=== PATIENT | male | born 1995 | race Hispanic/Latino ===

== ENCOUNTER 2016-12-16 08:17 | Emergency (ER) | payer SELFPAY ==
[~2016-12-16] VITALS: Ht 177.8 cm; Wt 140.0 kg
[~2016-12-16 08:17] MED LIST: ALBUTEROL S2.5 MG/.5 IN; AMOXICILLIN500 MG PO; CEPHALEXIN500 MG PO; IBUPROFEN600 MG OR; MEDDOSEPAK PO; MEDROL4 M1 PO; PROAIR HFA IN; ROBITUSSIN AC10 ML PO; STERAPRED DS10 MG PO; VENTOLIN HFA IN; ZITHROMAX500 MG OR; ZOFRAN4 MG/TAB PO; ZPAK PO; [UNRECOGNIZED DRUG - REMARK] IN
[2016-12-16] MEDS ORDERED: CLINDAMYCIN300 M1 PO (08:40)
[2016-12-16] MEDS ORDERED: NAPROSYN500 MG PO (08:40)
[2016-12-16 08:43] VITALS: BP 141/78
== END 2016-12-16 08:50 | disposition home or self-care (01) | DRG 603 ==
LOC: ED 08:17
DX: L03.032 Cellulitis of left toe (principal); J45.909 Unspecified asthma, uncomplicated

== ENCOUNTER 2017-11-07 01:13 | Emergency (ER) | payer SELFPAY ==
[~2017-11-07] VITALS: Ht 177.8 cm; Wt 145.0 kg
[~2017-11-07 01:13] MED LIST changes: +CLINDAMYCIN300 M1 PO; +NAPROSYN500 MG PO
[2017-11-07 01:50] LABS: HEMATOCRIT 42.7 % (39.0-50.0); HEMOGLOBIN 15.1 g/dl (14.0-18.0); IMMATURE GRANULOCYTES 0.4 % (0.0-5.0); MEAN CORPUSCULAR HGB 28.3 pG CALC (26.0-32.0); MEAN CORPUSCULAR HGB CONC 35.4 g/L CALC (32.0-36.0); NEUT# 9.11 thou/uL (1.82-7.42); RED BLOOD COUNT 5.34 mill/uL (4.70-6.10); RED CELL DISTRI WIDTH 12.3 % (11.5-15.5); URINE BILIRUBIN - DIPSTICK NEGATIVE (NEGATIVE); URINE BLOOD DIPSTICK NEGATIVE (NEGATIVE); URINE COLOR YELLOW; URINE GLUCOSE - DIPSTICK NEGATIVE (NEGATIVE); URINE KETONE TRACE mg/dL (NEGATIVE); URINE LEUK ESTERASE NEGATIVE (NEGATIVE); URINE NITRITE - DIPSTICK NEGATIVE (Negative); URINE PROTEIN - DIPSTICK 30 mg/dL (NEG-TRACE); URINE SPECIFIC GRAVITY 1.025; URINE UROBILINOGEN - DIPSTICK 0.2 E.U./dL (0.2)
[2017-11-07 01:52] LABS: URINE CLARITY CLEAR
[2017-11-07 01:54] LABS: BARBITURATES NEGATIVE (NEGATIVE); COCAINE NEGATIVE (NEGATIVE); METHADONE NEGATIVE (NEGATIVE); OXCYCODONE NEGATIVE (NEGATIVE); TETRAHYDROCANNABIONOL NEGATIVE (NEGATIVE); TRICYLIC ANTIDEPRESSANTS NEGATIVE (NEGATIVE)
[2017-11-07 01:56] LABS: URINE BACTERIA FEW hpf; URINE HYALINE CAST FEW lpf (NONE-RARE); URINE RBC 0-2 RBC/hpf (0-5); URINE SQUAMOUS EPITHELIAL CELL FEW EPI/hpf (0-FEW)
[2017-11-07 02:05] LABS: ALBUMIN 4.3 g/dL (3.2-5.0); ANION GAP 16 (6-22 (CALC)); BILIRUBIN, TOTAL 1.7 mg/dL (0.0-1.4); BUN 14 mg/dL (9-20); BUN/CREATININE RATIO 19 (12-20 (CALC)); CARBON DIOXIDE 23 mmol/l (22-30); CHLORIDE 109 mmol/l (95-108); CREATININE 0.8 mg/dL (0.7-1.3); GFR > 60 ML/MIN (>=60 (CALC)); GFR FOR AFR.AMER. > 60 ML/MIN (>=60 (CALC)); SGPT/ALT 47 u/l (21-72); SODIUM 144 mmol/l (137-146); TOTAL PROTEIN 8.2 g/dL (6.3-8.2)
[2017-11-07 02:12] LABS: ALKALINE PHOSPHATASE 105 u/l (38-126); SGOT/AST 39 u/l (17-59)
[2017-11-07] MEDS ORDERED: XANAX0.25 MG PO (02:18)
[2017-11-07] MEDS ORDERED: CEPHALEXIN500 M1 PO (02:19)
[2017-11-07 02:55] VITALS: BP 138/63
== END 2017-11-07 02:55 | disposition home or self-care (01) | DRG 880 ==
LOC: ED 01:13
PROVIDERS: Emergency Medicine
DX: F41.9 Anxiety disorder, unspecified (principal); F43.9 Reaction to severe stress, unspecified; N39.0 Urinary tract infection, site not specified; J45.909 Unspecified asthma, uncomplicated

== ENCOUNTER 2017-11-20 19:24 | Emergency (ER) | payer SELFPAY ==
[~2017-11-20] VITALS: Ht 177.8 cm; Wt 148.6 kg
[~2017-11-20 19:24] MED LIST changes: +CEPHALEXIN500 M1 PO; +XANAX0.25 MG PO
[2017-11-20 20:09] LABS: HEMATOCRIT 48.1 % (39.0-50.0); HEMOGLOBIN 16.3 g/dl (14.0-18.0); IMMATURE GRANULOCYTES 0.6 % (0.0-5.0); MEAN CELL VOLUME 82.2 fL CALC (80.0-100.0); MEAN CORPUSCULAR HGB 27.9 pG CALC (26.0-32.0); MEAN CORPUSCULAR HGB CONC 33.9 g/L CALC (32.0-36.0); NEUT# 12.51 thou/uL (1.82-7.42); RED BLOOD COUNT 5.85 mill/uL (4.70-6.10); RED CELL DISTRI WIDTH 12.3 % (11.5-15.5)
[2017-11-20 20:14] LABS: URINE BILIRUBIN - DIPSTICK NEGATIVE (NEGATIVE); URINE BLOOD DIPSTICK NEGATIVE (NEGATIVE); URINE COLOR YELLOW; URINE GLUCOSE - DIPSTICK NEGATIVE (NEGATIVE); URINE KETONE NEGATIVE (NEGATIVE); URINE LEUK ESTERASE NEGATIVE (NEGATIVE); URINE NITRITE - DIPSTICK NEGATIVE (Negative); URINE PROTEIN - DIPSTICK TRACE mg/dL (NEG-TRACE); URINE SPECIFIC GRAVITY >=1.030; URINE UROBILINOGEN - DIPSTICK 0.2 E.U./dL (0.2)
[2017-11-20 20:18] LABS: URINE CLARITY CLEAR
[2017-11-20] MEDS ORDERED: PROVENTIL0.083 % IN (20:18)
[2017-11-20 20:22] LABS: ALBUMIN 4.4 g/dL (3.2-5.0); ALKALINE PHOSPHATASE 115 u/l (38-126); ANION GAP 17 (6-22 (CALC)); BILIRUBIN, TOTAL 2.8 mg/dL (0.0-1.4); BUN 12 mg/dL (9-20); BUN/CREATININE RATIO 13 (12-20 (CALC)); CARBON DIOXIDE 25 mmol/l (22-30); CHLORIDE 103 mmol/l (95-108); GFR > 60 ML/MIN (>=60 (CALC)); GFR FOR AFR.AMER. > 60 ML/MIN (>=60 (CALC)); POTASSIUM 3.7 mmol/l (3.5-5.1); SGOT/AST 49 u/l (17-59); SODIUM 141 mmol/l (137-146); TOTAL PROTEIN 8.2 g/dL (6.3-8.2)
[2017-11-20 20:30] LABS: INFLUENZA A NONE DETECTED (NONE DETECT)
[2017-11-20 20:31] LABS: INFLUENZA B NONE DETECTED (NONE DETECT)
[2017-11-20] MEDS ORDERED: CIPROFLOXACN500 MG PO (20:37)
[2017-11-20 21:04] VITALS: BP 140/82
== END 2017-11-20 21:19 | disposition home or self-care (01) | DRG 373 ==
LOC: ED 19:24
PROVIDERS: Family Medicine
DX: A04.9 Bacterial intestinal infection, unspecified (principal); J45.909 Unspecified asthma, uncomplicated

== ENCOUNTER 2020-02-20 06:25 | Emergency (ER) | payer OTHER ==
[~2020-02-20] VITALS: Ht 182.9 cm; Wt 155.0 kg
[~2020-02-20 06:25] MED LIST changes: +CIPROFLOXACN500 MG PO; +PROVENTIL0.083 % IN
[2020-02-20] MEDS ORDERED: AMOXICILLIN875 MG PO (08:20)
[2020-02-20 08:30] VITALS: BP 146/82
== END 2020-02-20 08:30 | disposition home or self-care (01) | DRG 203 ==
LOC: ED 06:25
DX: J45.901 Unspecified asthma with (acute) exacerbation (principal); H66.92 Otitis media, unspecified, left ear; Z20.822 Contact with and (suspected) exposure to COVID-19

== ENCOUNTER 2020-04-27 00:33 | Emergency (ER) | payer OTHER ==
[~2020-04-27] VITALS: Ht 185.4 cm; Wt 164.0 kg
[~2020-04-27 00:33] MED LIST changes: +AMOXICILLIN875 MG PO
[2020-04-27 00:43] VITALS: BP 174/84
[2020-04-27] MEDS ORDERED: BP MED PO (00:51)
[2020-04-27] MEDS ORDERED: CORTISPORIN OTI10 M2 AS (00:52)
== END 2020-04-27 01:00 | disposition home or self-care (01) | DRG 156 ==
LOC: ED 00:33
DX: H60.92 Unspecified otitis externa, left ear (principal); I10 Essential (primary) hypertension; J45.909 Unspecified asthma, uncomplicated

== ENCOUNTER 2020-05-27 22:57 | Emergency (ER) | payer OTHER ==
[~2020-05-27 22:57] MED LIST changes: +BP MED PO; +CORTISPORIN OTI10 M2 AS
[2020-05-28 00:06] LABS: HEMATOCRIT 39.5 % (39.0-50.0); HEMOGLOBIN 13.4 g/dl (14.0-18.0); IMMATURE GRANULOCYTES 0.4 % (0.0-5.0); MEAN CORPUSCULAR HGB 27.8 pG CALC (26.0-32.0); MEAN CORPUSCULAR HGB CONC 33.9 g/dL CAL (32.0-36.0); NEUT# 8.44 thou/uL (1.82-7.42); RED BLOOD COUNT 4.82 mill/uL (4.70-6.10); RED CELL DISTRI WIDTH 12.4 % (11.5-15.5)
[2020-05-28 00:20] LABS: ALBUMIN 4.4 g/dL (3.2-5.0); ALKALINE PHOSPHATASE 99 u/l (38-126); ANION GAP 12 (6-22 (CALC)); BILIRUBIN, TOTAL 0.9 mg/dL (0.0-1.4); BUN 10 mg/dL (9-20); BUN/CREATININE RATIO 13 (12-20 (CALC)); CARBON DIOXIDE 27 mmol/l (22-30); CHLORIDE 101 mmol/l (95-108); CREATININE 0.8 mg/dL (0.7-1.3); GFR > 60 ML/MIN (>=60 (CALC)); GFR FOR AFR.AMER. > 60 ML/MIN (>=60 (CALC)); SGOT/AST 38 u/l (17-59); SODIUM 137 mmol/l (137-146); TOTAL PROTEIN 8.2 g/dL (6.3-8.2)
[2020-05-28] MEDS ORDERED: ZPAK PO (00:27)
[2020-05-28] MEDS ORDERED: CODEINE/GUAIFEN1 SOL PO (02:30)
[2020-05-28 02:52] VITALS: BP 151/77
== END 2020-05-28 02:53 | disposition home or self-care (01) | DRG 203 ==
LOC: ED 22:57
PROVIDERS: Emergency Medicine
DX: J45.909 Unspecified asthma, uncomplicated (principal); I10 Essential (primary) hypertension; Z20.822 Contact with and (suspected) exposure to COVID-19
CPT/HCPCS: Q9967

== ENCOUNTER 2020-10-03 07:24 | Emergency (ER) | payer MEDICAID ==
[~2020-10-03] VITALS: Ht 185.4 cm; Wt 158.0 kg
[~2020-10-03 07:24] MED LIST changes: +CODEINE/GUAIFEN1 SOL PO
[2020-10-03 07:44] VITALS: BP 146/76
[2020-10-03] MEDS ORDERED: ZPAK PO (08:36)
[2020-10-03] MEDS ORDERED: DECADRON2 MG PO (08:36)
== END 2020-10-03 08:53 | disposition home or self-care (01) ==
LOC: ED 07:24
DX: U07.1 COVID-19 (principal); J45.909 Unspecified asthma, uncomplicated; I10 Essential (primary) hypertension

== ENCOUNTER 2020-12-22 20:19 | Emergency (ER) | payer MEDICAID ==
[~2020-12-22] VITALS: Ht 185.4 cm; Wt 159.0 kg
[~2020-12-22 20:19] MED LIST changes: +DECADRON2 MG PO
[2020-12-22] MEDS ORDERED: NORVASC5 M1 PO (21:20)
[2020-12-22] MEDS ORDERED: MICARDIS20 MG PO (21:20)
[2020-12-22] MEDS ORDERED: NYQUI2 PO (21:21)
[2020-12-22] MEDS ORDERED: ZPAK PO (21:21)
[2020-12-22] MEDS ORDERED: SIMVASTATIN5 MG PO (21:21)
[2020-12-22 21:27] LABS: HEMATOCRIT 39.8 % (39.0-50.0); HEMOGLOBIN 13.9 g/dl (14.0-18.0); IMMATURE GRANULOCYTES 0.8 % (0.0-5.0); MEAN CELL VOLUME 81.4 fL CALC (80.0-100.0); MEAN CORPUSCULAR HGB 28.4 pG CALC (26.0-32.0); MEAN CORPUSCULAR HGB CONC 34.9 g/dL CAL (32.0-36.0); NEUT# 9.06 thou/uL (1.82-7.42); RED BLOOD COUNT 4.89 mill/uL (4.70-6.10); RED CELL DISTRI WIDTH 12.4 % (11.5-15.5)
[2020-12-22 21:40] LABS: ALKALINE PHOSPHATASE 80 u/l (38-126); ANION GAP 14 (6-22 (CALC)); BILIRUBIN, TOTAL 1.5 mg/dL (0.0-1.4); BUN 12 mg/dL (9-20); BUN/CREATININE RATIO 14 (12-20 (CALC)); CARBON DIOXIDE 22 mmol/l (22-30); CHLORIDE 104 mmol/l (95-108); CREATININE 0.8 mg/dL (0.7-1.3); GFR > 60 ML/MIN (>=60 (CALC)); GFR FOR AFR.AMER. > 60 ML/MIN (>=60 (CALC)); POTASSIUM 3.5 mmol/l (3.5-5.1); SGOT/AST 31 u/l (17-59); SODIUM 136 mmol/l (137-146); TOTAL PROTEIN 7.3 g/dL (6.3-8.2)
[2020-12-22] MEDS ORDERED: TAM75CAP PO (22:22)
[2020-12-22 23:18] VITALS: BP 129/58
== END 2020-12-22 23:12 | disposition home or self-care (01) ==
LOC: ED 20:19
PROVIDERS: Emergency Medicine
DX: J11.1 Influenza due to unidentified influenza virus with other respiratory manifestations (principal); I10 Essential (primary) hypertension; J45.909 Unspecified asthma, uncomplicated; E78.00 Pure hypercholesterolemia, unspecified; Z20.822 Contact with and (suspected) exposure to COVID-19

== ENCOUNTER 2021-03-28 18:05 | Emergency (ER) | payer MEDICAID ==
[~2021-03-28] VITALS: Ht 185.4 cm; Wt 159.0 kg
[2021-03-28] VITALS (8 sets, daily range): BP systolic 126–144; BP diastolic 64–80
[~2021-03-28 18:05] MED LIST changes: +MICARDIS20 MG PO; +NORVASC5 M1 PO; +NYQUI2 PO; +SIMVASTATIN5 MG PO; +TAM75CAP PO
[2021-03-28 19:12] LABS: HEMATOCRIT 41.9 % (39.0-50.0); HEMOGLOBIN 14.1 g/dl (14.0-18.0); IMMATURE GRANULOCYTES 0.2 % (0.0-5.0); MEAN CORPUSCULAR HGB 27.6 pG CALC (26.0-32.0); MEAN CORPUSCULAR HGB CONC 33.7 g/dL CAL (32.0-36.0); NEUT# 8.7 thou/uL (1.82-7.42); RED BLOOD COUNT 5.11 mill/uL (4.70-6.10); RED CELL DISTRI WIDTH 12.4 % (11.5-15.5)
[2021-03-28 19:34] LABS: ACT PARTIAL THROMBO TIME 29.7 SECONDS (20.0-32.5); ALBUMIN 4.2 g/dL (3.2-5.0); ALKALINE PHOSPHATASE 105 u/l (38-126); ANION GAP 17 (6-22 (CALC)); BUN 17 mg/dL (9-20); BUN/CREATININE RATIO 23 (12-20 (CALC)); CARBON DIOXIDE 24 mmol/l (22-30); CHLORIDE 104 mmol/l (95-108); CREATININE 0.7 mg/dL (0.7-1.3); ETHYL ALCOHOL 0 mg/dl (0-30); GFR > 60 ML/MIN (>=60 (CALC)); GFR FOR AFR.AMER. > 60 ML/MIN (>=60 (CALC)); LIPASE 41 u/l (23-300); MAGNESIUM 1.9 mg/dL (1.6-2.3); POTASSIUM 3.8 mmol/l (3.5-5.1); SGOT/AST 40 u/l (17-59); SODIUM 141 mmol/l (137-146)
[2021-03-28 19:36] LABS: BILIRUBIN, TOTAL 0.8 mg/dL (0.0-1.4)
== END 2021-03-28 22:43 | disposition home or self-care (01) ==
LOC: ED 18:05
DX: R07.89 Other chest pain (principal); I10 Essential (primary) hypertension; E78.5 Hyperlipidemia, unspecified; J45.909 Unspecified asthma, uncomplicated; F17.210 Nicotine dependence, cigarettes, uncomplicated; E66.9 Obesity, unspecified; Z82.49 Family history of ischemic heart disease and other diseases of the circulatory system; Z20.822 Contact with and (suspected) exposure to COVID-19

== ENCOUNTER 2021-04-04 13:42 | Emergency (ER) | payer MEDICAID | END 2021-04-04 15:21 | disposition left against medical advice (07) | DRG 951 | LOC: ED 13:42 → LWOBS 15:20 | DX: Z53.21 Procedure and treatment not carried out due to patient leaving prior to being seen by health care provider (principal) ==

== ENCOUNTER 2022-10-25 18:57 | Emergency (ER) | payer OTHER ==
[~2022-10-25] VITALS: Ht 180.3 cm; Wt 160.0 kg
[2022-10-25 23:11] LABS: URINE BILIRUBIN - DIPSTICK Negative (NEGATIVE); URINE BLOOD DIPSTICK Negative (NEGATIVE); URINE GLUCOSE - DIPSTICK Negative (NEGATIVE); URINE KETONE Trace mg/dL (NEGATIVE); URINE LEUK ESTERASE Negative (NEGATIVE); URINE NITRITE - DIPSTICK Negative (Negative); URINE PROTEIN - DIPSTICK Trace mg/dL (NEG-TRACE)
[2022-10-25 23:20] LABS: URINE COLOR Yellow
[2022-10-25] MEDS ORDERED: ULTRAM50 MG PO (23:30)
[2022-10-25] MEDS ORDERED: CYCLOBENZAPRINE10 MG PO (23:42)
[2022-10-26 00:15] VITALS: BP 137/60
[2022-10-26] MEDS ORDERED: CYCLOBENZAPRINE10 MG PO (02:51)
[2022-10-26] MEDS ORDERED: ULTRAM50 MG PO (02:51)
[2022-10-26] MEDS ORDERED: TELMISARTAN PO (02:56)
[2022-10-26] MEDS ORDERED: HYD PO (02:56)
== END 2022-10-26 00:15 | disposition home or self-care (01) ==
LOC: ED 18:57
PROVIDERS: Emergency Medicine
DX: S33.5XXA Sprain of ligaments of lumbar spine, initial encounter (principal); S73.102A Unspecified sprain of left hip, initial encounter; I10 Essential (primary) hypertension; J45.909 Unspecified asthma, uncomplicated; E78.00 Pure hypercholesterolemia, unspecified; X50.3XXA Overexertion from repetitive movements, initial encounter; Y93.B3 Activity, free weights

== ENCOUNTER 2023-02-18 07:47 | Emergency (ER) | payer SELFPAY ==
[~2023-02-18] VITALS: Ht 180.3 cm; Wt 157.0 kg
[~2023-02-18 07:47] MED LIST changes: +CYCLOBENZAPRINE10 MG PO; +HYD PO; +TELMISARTAN PO; +ULTRAM50 MG PO
[2023-02-18 07:56] VITALS: BP 158/92
[2023-02-18 08:00] VITALS: BP 153/87
[2023-02-18] MEDS ORDERED: MICARDIS H80 MG/25 M PO ×2 (08:08→08:13)
[2023-02-18] MEDS ORDERED: AMLODIPINE BESY10 MG PO ×2 (08:08→08:13)
[2023-02-18] MEDS ORDERED: SIMVASTATIN10 MG PO ×2 (08:09→08:13)
[2023-02-18 08:15] VITALS: BP 159/137
[2023-02-18 08:30] VITALS: BP 143/84
[2023-02-18 08:45] VITALS: BP 143/92
== END 2023-02-18 08:48 | disposition home or self-care (01) | DRG 305 ==
LOC: ED 07:47
DX: I10 Essential (primary) hypertension (principal)

== ENCOUNTER 2023-08-09 11:59 | Emergency (ER) | payer SELFPAY ==
[~2023-08-09] VITALS: Ht 180.3 cm; Wt 142.8 kg
[2023-08-09] VITALS (7 sets, daily range): BP systolic 117–152; BP diastolic 72–96
[~2023-08-09 11:59] MED LIST changes: +AMLODIPINE BESY10 MG PO; +MICARDIS H80 MG/25 M PO; +SIMVASTATIN10 MG PO; +VOLTAREN - GENE75 MG PO
[2023-08-09] MEDS ORDERED: ORPHENADRINE CITRATE 30 MG/ML AMP IV ONE (12:30)
[2023-08-09] MEDS ORDERED: KETOROLAC TROMETHAMINE 30 MG/ML SDV IM ONE (12:30)
[2023-08-09] MEDS ORDERED: predniSONE 20 MG/TAB PO ONE (13:20)
[2023-08-09 14:38] LABS: URINE BILIRUBIN - DIPSTICK Negative (NEGATIVE); URINE BLOOD DIPSTICK Negative (NEGATIVE); URINE GLUCOSE - DIPSTICK Negative (NEGATIVE); URINE KETONE Negative (NEGATIVE); URINE LEUK ESTERASE Negative (NEGATIVE); URINE NITRITE - DIPSTICK Negative (Negative); URINE PH 5.5 (4.5-8.0); URINE PROTEIN - DIPSTICK Negative (NEG-TRACE); URINE SPECIFIC GRAVITY 1.025; URINE UROBILINOGEN - DIPSTICK 0.2 E.U./dL (0.2)
[2023-08-09 14:39] LABS: URINE COLOR Yellow
[2023-08-09] MEDS ORDERED: PREDNISONE10 MG PO (15:03)
[2023-08-09] MEDS ORDERED: METHOCARBAMOL500 MG PO (15:03)
[2023-08-09] MEDS ORDERED: NAPROXEN500 MG PO (15:03)
== END 2023-08-09 15:39 | disposition home or self-care (01) | DRG 552 ==
LOC: ED 11:59
PROVIDERS: Nurse Practitioner
DX: M54.42 Lumbago with sciatica, left side (principal); I10 Essential (primary) hypertension; J45.909 Unspecified asthma, uncomplicated; E78.00 Pure hypercholesterolemia, unspecified